=== PATIENT | male | born 1990 | race Caucasian/White ===

== ENCOUNTER 2017-09-15 06:20 | Emergency (ER) | payer SELFPAY ==
[~2017-09-15] VITALS: Ht 182.9 cm; Wt 181.8 kg
[2017-09-15 06:20] VITALS: TEMP 97.2
[~2017-09-15 06:20] MED LIST: NO HOME MEDICATIONS
[2017-09-15 06:26] LABS: COLLECTION METHOD CLEAN CATCH
[2017-09-15 06:35] LABS: MUCOUS Present /lpf; PH 5 (5-8); SQUAMOUS EPITHELIAL 0-2 /hpf; URINE APPEARANCE Clear; URINE BACTERIA None Seen /hpf; URINE BILIRUBIN Negative (NEGATIVE); URINE BLOOD 3+ (NEGATIVE); URINE COLOR Yellow; URINE GLUCOSE Negative (NEGATIVE); URINE KETONE Negative (NEGATIVE); URINE LEUKOCYTE ESTERASE Negative (NEGATIVE); URINE NITRATE Negative (NEGATIVE); URINE PROTEIN(semi-quant) Negative (NEGATIVE); URINE RBC >50 /hpf; URINE UROBILINOGEN Negative (NEGATIVE)
[2017-09-15 07:03] VITALS: BP 159/92; PULSE 92
== END 2017-09-15 07:15 | disposition home or self-care (01) ==
LOC: COL.ER 06:20
PROVIDERS: Emergency Medicine
DX: M54.9 Dorsalgia, unspecified (principal); R31.9 Hematuria, unspecified